=== PATIENT | female | born 1985 | race African-American/Black ===

== ENCOUNTER 2020-08-26 01:56 | Emergency (ER) | payer OTHER ==
[~2020-08-26] VITALS: Ht 170.2 cm; Wt 77.1 kg
[2020-08-26] MEDS ORDERED: KETOROLAC TROMETHAMINE 60 MG/2 ML VIAL IM ONE (02:30)
[2020-08-26] MEDS ORDERED: AUGMENTIN 875-1 EACH PO (02:32)
== END 2020-08-26 02:48 | disposition home or self-care (01) ==
LOC: FSED 02:24
DX: H66.91 Otitis media, unspecified, right ear (principal)
CPT/HCPCS: 99282